=== PATIENT | male | born 1960 | race Asian ===

== ENCOUNTER 2016-12-09 15:11 | Emergency (ER) | payer BC ==
--- NOTE | 2016-12-09 15:54 | UC ---
Lower Extremity/Ankle HPI - HPI Summary HPI Summary: complaint of left leg pain that started 1 week ago sometimes he is having pain in calf and behind knee varicose vein has popped out of his leg ambulating increases the pain intermittent swelling in his left foot and leg not taking any medication for pain wants a hepatitis C testing - History of Current Complaint Chief Complaint: UCLowerExtremity Stated Complaint: LEFT LEG PAIN Time Seen by Provider: 12/09/16 15:46 Hx Obtained From: Patient - Allergies/Home Medications Allergies/Adverse Reactions: Allergies Allergy/AdvReac Type Severity Reaction Status Date / Time No Known Allergies Allergy Verified 09/20/15 11:22 PMH/Surg Hx/FS Hx/Imm Hx Previously Healthy: Yes - Surgical History Surgical History: Yes Surgery Procedure, Year, and Place: tbi - Family History Known Family History: Negative: Cardiac Disease, Hypertension, Diabetes - Social History Occupation: Employed Full-time Lives: With Family Alcohol Use: None Substance Use Type: None Smoking Status (MU): Heavy Every Day Tobacco Smoker Cessation Counseling: Patient Advised to Stop Review of Systems Constitutional: Negative Skin: Negative Eyes: Negative ENT: Negative Respiratory: Negative Cardiovascular: Negative Gastrointestinal: Negative Genitourinary: Negative Motor: Negative Neurovascular: Negative Musculoskeletal: Other: - LLE pain Neurological: Negative Psychological: Negative All Other Systems Reviewed And Are Negative: Yes Physical Exam Triage Information Reviewed: Yes Appearance: No Pain Distress, Well-Nourished Vital Signs: Initial Vital Signs Temp 99.1 F 12/09/16 15:15 Pulse 76 12/09/16 15:15 Resp 16 12/09/16 15:15 Pulse Ox 100 12/09/16 15:15 Vital Signs Reviewed: Yes Eyes: Positive: Conjunctiva Clear ENT: Positive: Pharynx normal, TMs normal Neck: Positive: No Lymphadenopathy Respiratory: Positive: Lungs clear, Normal breath sounds, No respiratory distress, No accessory muscle use Cardiovascular: Positive: RRR, No Murmur, Pulses Normal, Other: - normal pedal pulses Abdomen Description: Positive: Nontender, Soft Bowel Sounds: Positive: Present Musculoskeletal: Positive: No Edema, Other: - LLE- torturous varicose veinlateral side of calf, tenderness in calf, Neurological: Positive: Alert Psychological Exam: Normal Skin Exam: Normal Lower Extremity Course/Dx - Course Course Of Treatment: exam completed. d/t calf and knee pain with torturous varicosity- will transfer to higher level of care -needs doppler testing - Differential Dx/Diagnosis Differential Diagnosis/HQI/PQRI: DVT, Other - varicose veins Provider Diagnoses: left lower extremity pain, varicose veins Discharge - Discharge Plan Condition: Stable Disposition: TRANS HIGHER LVL OF CARE FAC
[2016-12-09 16:36] VITALS: BP 106/66
== END 2016-12-09 16:04 | disposition left against medical advice (07) ==
LOC: UCEAST 15:11
DX: I83.812 Varicose veins of left lower extremity with pain (principal); Z72.0 Tobacco use
CPT/HCPCS: 36415; 86703; 86803; 99212; G0463

== ENCOUNTER → 2016-12-09 16:53 | Emergency (ER) | payer BC ==
--- NOTE | 2016-12-09 17:59 | RAD ---
Indication: Left calf pain. Duplex Doppler sonography of the deep venous system of the left lower extremity deep venous system was performed. Bilaterally the common femoral veins appear patent and compressible. Left proximal greater saphenous vein, proximal deep femoral vein, femoral vein, popliteal vein, posterior tibial veins and peroneal veins appear patent and compressible. IMPRESSION: NO EVIDENCE OF DEEP VENOUS THROMBOSIS IS IDENTIFIED.
--- NOTE | 2016-12-09 18:56 | ED ---
Cayla Loco Alok, scribed for Elizabeth Rodríguez MD on 12/09/16 at 1838 . Lower Extremity - HPI Summary HPI Summary: 56M presents to the ED for left leg pain for the past few weeks. Pt states he first noticed a varicose vein at his left soto recently states it could have appeared weeks ago without his noticing. Pt denies CP or SOB. Pt denies h/o blood clot or anti-coagulant medications. Pt smokes tobacco. - History of Current Complaint Chief Complaint: EDExtremityUpper Stated Complaint: LT LEG PAIN Time Seen by Provider: 12/09/16 17:56 Hx Obtained From: Patient Onset/Duration: Still Present Severity Initially: Moderate Severity Currently: Moderate Pain Intensity: 5 Pain Scale Used: 0-10 Numeric Timing: Constant Location: Is Discrete @ - left leg Aggravating Factor(s): Standing Alleviating Factor(s): Nothing - Allergies/Home Medications Allergies/Adverse Reactions: Allergies Allergy/AdvReac Type Severity Reaction Status Date / Time No Known Allergies Allergy Verified 09/20/15 11:22 PMH/Surg Hx/FS Hx/Imm Hx Endocrine/Hematology History: Denies: Hx Diabetes Cardiovascular History: Denies: Hx Hypertension - Surgical History Surgery Procedure, Year, and Place: tbi Infectious Disease History: No Infectious Disease History: Denies: Hx Clostridium Difficile, Hx Hepatitis, Hx Human Immunodeficiency Virus (HIV), Hx of Known/Suspected MRSA, Hx Shingles, Hx Tuberculosis, Hx Known/ Suspected VRE, Hx Known/Suspected VRSA, History Other Infectious Disease, Traveled Outside the in Last 30 Days - Family History Known Family History: Negative: Cardiac Disease, Hypertension, Diabetes - Social History Occupation: Employed Full-time Lives: Alone Alcohol Use: Occasionally Substance Use Type: Reports: None Smoking Status (MU): Light Every Day Tobacco Smoker Review of Systems Negative: Fever Negative: Chest Pain Negative: Shortness Of Breath Positive: Other - left leg pain All Other Systems Reviewed And Are Negative: Yes Physical Exam Triage Information Reviewed: Yes Vital Signs On Initial Exam: Initial Vitals Temp Pulse Resp BP Pulse Ox 98.3 F 78 18 136/86 98 12/09/16 16:55 12/09/16 16:55 12/09/16 16:55 12/09/16 16:55 12/09/16 16:55 Vital Signs Reviewed: Yes Appearance: Positive: Well-Appearing, No Pain Distress Skin: Positive: Warm, Skin Color Reflects Adequate Perfusion, Dry Eyes: Positive: EOMI, DANIELLE ENT: Positive: Pharynx normal, TMs normal Neck: Positive: Supple, Nontender Respiratory/Lung Sounds: Positive: Clear to Auscultation, Breath Sounds Present. Negative: Rales, Rhonchi, Wheezes Cardiovascular: Positive: RRR, Other - no gallop. Negative: Murmur, Rub Abdomen Description: Positive: Nontender, Soft, Other: - no rebound. Negative: Distended, Guarding Bowel Sounds: Positive: Present Musculoskeletal: Positive: Strength/ROM Intact, Other - Small varicose vein 3 cm at medial aspect of the mid-leg. No erythema.. Negative: Edema Left, Edema Right Neurological: Positive: Sensory/Motor Intact, Alert, Oriented to Person Place, Time, CN Intact II-III Psychiatric: Positive: Affect/Mood Appropriate Diagnostics - Vital Signs Vital Signs Temp Pulse Resp BP Pulse Ox 12/09/16 17:06 98.3 F 78 18 136/86 98 12/09/16 16:55 98.3 F 78 18 136/86 98 - Laboratory Lab Statement: Any lab studies that have been ordered have been reviewed, and results considered in the medical decision making process. - Additional Comments Diagnostic Additional Comments: Left Lower Extremity US - IMPRESSION: NO EVIDENCE OF DEEP VENOUS THROMBOSIS IS IDENTIFIED. Lower Extremity Course/Dx - Course Course Of Treatment: pt with varicose vein no clot no surrounding erythema non tender to palpation - Diagnoses Provider Diagnoses: Varicose vein of leg Discharge - Discharge Plan Condition: Stable Disposition: HOME Patient Education Materials: Varicose Veins (ED) Referrals: Blossom Jain MD [Primary Care Provider] - The documentation as recorded by the Cayla corona Alok accurately reflects the service I personally performed and the decisions made by me, Elizabeth Rodríguez MD.
[2016-12-09 18:57] VITALS: BP 143/78
== END | disposition home or self-care (01) ==
LOC: ED 16:53
DX: I83.92 Asymptomatic varicose veins of left lower extremity (principal); F17.200 Nicotine dependence, unspecified, uncomplicated
CPT/HCPCS: 99281